=== PATIENT | female | born 1965 ===

== ENCOUNTER 2021-01-16 05:41 | Day surgery (SDC) | payer OTHER ==
[~2021-01-16 05:41] MED LIST: GABAPENTIN100 M2 PO; RESTORIL7.5 MG PO; ZIPSOR25 MG PO
== END 2021-01-16 15:50 | disposition home or self-care (01) ==
LOC: CIR.AMB 05:41
PROVIDERS: ATTEND Colon & Rectal Surgery
DX: K64.8 Other hemorrhoids (principal); Z20.822 Contact with and (suspected) exposure to COVID-19